=== PATIENT | female | born 1980 | race American Indian/Alaskan Native ===

== ENCOUNTER 2021-10-04 15:26 | Observation (INO) | payer MEDICARE ==
[2021-10-04 17:24] LABS: Bacteria,Urine 1+ /HPF (Negative); Bilirubin,Urine NEG (Negative); Blood,Urine NEG (Negative); Color,Urine Yellow (Yellow); Mucus,Urine FEW /HPF; Protein,Urine <15 mg/dL mg/dL (Negative); Urobilinogen,Urine < 2.0 mg/dL (<2.0)
[2021-10-04 17:49] LABS: Hematocrit 37.9 % (30.3-42.9); Hemoglobin 13.1 gm/dl (10.1-14.3); Mean Corpuscular HGB Conc 35 % (30-34); Mean Corpuscular Volume 97 fl (79-97); Platelet Count 173 K/mm3 (140-440); Red Blood Count 3.92 M/mm3 (3.65-5.03); Red Cell Distribution Width 13.6 % (13.2-15.2)
[2021-10-04 18:07] LABS: Alanine Aminotransferase 12 units/L (7-56); Uric Acid 5.3 mg/dL (3.5-7.6)
[2021-10-04] MEDS ORDERED: ALUM-MAG HYDROXIDE-SIMETHICONE 200-200-20MG/5ML ORAL LIQD 30 ML PO PRN (19:59)
[2021-10-04] MEDS ORDERED: DOCUSATE SODIUM 100 MG CAP PO PRN (19:59)
[2021-10-04] MEDS ORDERED: SIMETHICONE 80 MG CHEW TAB PO PRN (19:59)
--- NOTE | 2021-10-04 20:00 | History and Physical Report ---
History of Present Illness Date of examination: 10/04/21 Date of admission: 10/04/2021 Chief complaint: Elevated Blood Pressure History of present illness: 27 yo EDC 11/23 @ 32 6/7 weeks sent from high risk secondary to elevated BP. Pt for evaluation to rule out preeclampsia. Pt. with mild headache. No blurry vision, scotoma or epigastric pain. Good FM. No vaginal bleeding, contraction or leakage of fluid. Pt. was admitted 3 days ago to r/o preeclampsia. Received celestone then. H/o cerclage placement at 22 weeks as per patient Past History Past Medical History: hypertension Past Surgical History: cholecystectomy, other (Nose) Family/Genetic History: diabetes, hypertension (Lupus) Social history: no significant social history - Obstetrical History Expected Date of Delivery: 11/23/21 Actual Gestation: 32 Week(s) 6 Day(s) : 6 Para: 5 Hx # Term Pregnancies: 5 Number of Pregnancies: 0 Spontaneous Abortions: 0 Induced : 5 Medications and Allergies Allergies Allergy/AdvReac Type Severity Reaction Status Date / Time No Known Allergies Allergy Verified 11/16/14 12:38 Home Medications Medication Instructions Recorded Confirmed Last Taken Type Labetalol HCl 1 tab PO BID 11/15/14 11/16/14 11/16/14 09:00 History 1 Pnv with Ca,No.72/Iron/FA 1 tab PO DAILY 11/15/14 11/16/14 11/16/14 09:00 History [ Plus Tablet] Progesterone, Micronized 1 caplet VG DAILY 11/15/14 11/16/14 11/15/14 21:00 Hi story [Progesterone] 1 Active Meds: Active Medications Labetalol HCl (Labetalol 200 Mg Tab) 300 mg PO BID [facility] Stop: 10/10/21 23:59 Review of Systems All systems: negative - Vital Signs Vital signs: Vital Signs Temp Pulse Resp BP Pulse Ox 98.2 F 74 20 148/93 97 10/04/21 17:05 10/04/21 17:05 10/04/21 17:05 10/04/21 17:05 10/04/21 17:05 Temp Pulse Resp BP Pulse Ox 98.2 F 74 20 148/93 97 10/04/21 17:05 10/04/21 17:05 10/04/21 17:05 10/04/21 17:05 10/04/21 17:05 - Physical Exam Abdomen: Positive: normal appearance, soft Uterus: Positive: enlarged (32 weeks) Extremities: Positive: normal Deep Tendon Reflex Grade: Normal +2 - Obstetrical FHR: category 1 Results Result Diagrams: 10/04/21 Unknown 10/04/21 Unknown Abnormal lab results 10/04/21 10/04/21 Range/Units Unknown Unknown MCH 33 H (28-32) pg MCHC 35 H (30-34) % Creatinine 0.5 L (0.6-1.2) mg/dL All other labs normal. Assessment and Plan A IUP @ 32 6/7 weeks Chronic Hypertension r/o superimposed preeclampsia Incompetent Cervix. Grand multip P Admit for observation Normal PIH labs 24 hour urine protein Continue labetalol PIH labs in am H/o cerclage placement this . Continue progesterone per vagina
[2021-10-04] MEDS: ACETAMINOPHEN 325 MG TAB PO PRN (21:32)
[2021-10-05] MEDS: ACETAMINOPHEN 325 MG TAB PO PRN ×3 (03:07→21:25)
--- NOTE | 2021-10-05 09:39 | Ultrasound Report ---
ULTRASOUND OBSTETRIC LIMITED ULTRASOUND BIOPHYSICAL PROFILE INDICATION / CLINICAL INFORMATION: BRENDA, placenta condition; HTN w/pre-eclampia. COMPARISON: None available. FINDINGS: BREATHING MOVEMENT = 2 GROSS BODY MOVEMENT = 2 TONE = 2 QUALITATIVE AMNIOTIC FLUID VOLUME = 2 TOTAL BIOPHYSICAL SCORE = 8/8 AMNIOTIC FLUID INDEX (cm) = 15.8 PRESENTATION: Cephalic. HEART RATE (beats per minute): 144 ADDITIONAL FINDINGS: The placenta is located posteriorly and is grade 1/2 and is free of the os. IMPRESSION: 1. Biophysical Score = 8/8 2. No significant abnormality. Signer Name: Fernando Schwartz MD Signed: 10/05/2021 9:35 AM Workstation Name: [id number]
[2021-10-05] MEDS ORDERED: PRENATAL VIT27-FE FUMARATE-FOLIC ACID VIT TAB PO SCH (10:00)
--- NOTE | 2021-10-05 10:18 | Consultation ---
History of Present Illness - History of Present Illness 41-year-old female with past medical history of 32 weeks , chronic hypertension, GERD presenting to our facility for evaluation for preeclampsia. Patient on presentation states that her only complaints were headache, blurry vision, chest pain. Chest pain was described as 3 out of 10 pain, sharp, in the center of her chest, nonradiating. She denies any associated neck pain jaw pain shoulder pain, shortness of breath, nausea, vomiting. She has no prior history of cardiac issues. Remainder of ROS negative except for stated above Patient states that she takes labetalol 200 mg p.o. twice daily as an outpatient. She has had longstanding high blood pressure which is only gotten worse throughout her . [facility]. IMS consulted for blood pressure management and preeclampsia. PMHx: 32 weeks , hypertension, GERD PSHx: Cholecystectomy, cerclage, tonsillectomy, rhinoplasty FHx: Reviewed noncontributory. SHx: Tobacco use-denies ETOH Use-denies Recreational Drug Use-denies Past History Social history: no significant social history Medications and Allergies Allergies Allergy/AdvReac Type Severity Reaction Status Date / Time No Known Allergies Allergy Verified 11/16/14 12:38 Home Medications Medication Instructions Recorded Confirmed Last Taken Type Labetalol HCl 1 tab PO BID 11/15/14 10/05/21 10/04/21 08:30 History Pnv with Ca,No.72/Iron/FA 1 tab PO DAILY 11/15/14 10/05/21 10/04/21 11:00 History [ Plus Tablet] Progesterone, Micronized 1 caplet VG DAILY 11/15/14 10/05/21 10/03/21 22:00 History [Progesterone] Aspirin 80 mg PO DAILY 10/05/21 10/05/21 10/04/21 08:30 History Active Meds: Active Medications Acetaminophen (Acetaminophen 325 Mg Tab) 650 mg PO Q4H PRN PRN Reason: Pain MILD(1-3)/Fever >100.5/LEMUS Last Admin: 10/05/21 03:07 Dose: 650 mg Al Hydrox/Mg Hydrox/Simethicone (Alum-Mag Hydroxide-Simethicone [id number]/5ml Oral Liqd 30 Ml) 30 ml PO Q6H PRN PRN Reason: Indigestion Docusate Sodium (Docusate Sodium 100 Mg Cap) 100 mg PO Q12H PRN PRN Reason: Constipation Labetalol HCl (Labetalol 100 Mg Tab) 300 mg PO BID [facility] Stop: 10/10/21 23:59 Last Admin: 10/05/21 08:41 Dose: 300 mg Multivitamins/Iron/Calcium ( Ksc16-Sc Fumarate-Folic Acid Vit Tab) 1 each PO QDAY [facility] Last Admin: 10/05/21 09:44 Dose: 1 each Simethicone (Simethicone 80 Mg Chew Tab) 80 mg PO Q6H PRN PRN Reason: Gas pain Exam - Physical Exam Narrative exam: Physical Exam: VITAL SIGNS: Reviewed. GENERAL: The patient appears normally developed, Vital signs as documented. HEAD: No signs of head trauma. EYES: Pupils are equal. Extraocular motions intact. EARS: Hearing grossly intact. MOUTH: Oropharynx is normal. NECK: No adenopathy, no JVD. CHEST: Chest with clear breath sounds bilaterally. No wheezes, rales, or rhonchi. CARDIAC: Regular rate and rhythm. S1 and S2, without murmurs, gallops, or rubs. VASCULAR: No Edema. Peripheral pulses normal and equal in all extremities. ABDOMEN: Abdominal exam consistent with 26 weeks . Soft, non tender.. No rebound or guarding, and no masses palpated. Bowel Sounds normal. MUSCULOSKELETAL: Good range of motion of all major joints. Extremities without clubbing, cyanosis or edema. NEUROLOGIC EXAM: Alert and oriented x 4. no focal sensory or strength deficits. PSYCHIATRIC: Mood normal. SKIN: detail exam as documented in skin assessment - Constitutional Vitals: Temp Pulse Resp BP Pulse Ox 98.2 F 85 18 131/84 97 10/04/21 17:05 10/05/21 09:54 10/05/21 04:03 10/05/21 09:54 10/05/21 09:31 Results - Labs CBC & Chem 7: 10/05/21 09:59 10/05/21 09:59 Labs: Abnormal lab results 10/04/21 10/04/21 Range/Units Unknown Unknown MCH 33 H (28-32) pg MCHC 35 H (30-34) % Creatinine 0.5 L (0.6-1.2) mg/dL Assessment and Plan Assessment #Intrauterine 32 weeks #Chronic hypertension, with concern for preeclampsia #Chest pain #GERD #History of migraines #Advance care planning Disease education conducted, care plan discussed, diagnoses discussed, prognosis discussed, patient is full code, patient acknowledges understanding and agree with care plan, +30 minutes. Plan -GERIATRIC CASE MANAGER following for -Agree with 24-hour urine protein collection, will follow for results. -Recommend every 8 hour blood pressure checks -EKG reviewed, normal sinus rhythm on my interpretation, no ST changes, no T wave inversion. Some poor R wave progression noted however suspect that this is due to underlying chronic hypertension, and . -Doubt cardiac etiology of chest pain. Suspect this is all related to GERD symptomology/ -Agree with labetalol 300 mg p.o. twice daily -If patient blood pressure continues to be difficult to manage, would recommend addition of Procardia XL -Recommend restarting home protonix 40 mg po daily. -All medications ordered on chart reviewed and agree thus far. D/w Dr. Gilmore. IMS will continue to follow as long as patient is in hospital.
[2021-10-05 10:28] LABS: Hemoglobin 11.8 gm/dl (10.1-14.3); Mean Corpuscular HGB Conc 35 % (30-34); Mean Corpuscular Volume 96 fl (79-97); Platelet Count 186 K/mm3 (140-440); Red Blood Count 3.54 M/mm3 (3.65-5.03); Red Cell Distribution Width 13.1 % (13.2-15.2)
[2021-10-05 10:41] LABS: Uric Acid 5.7 mg/dL (3.5-7.6)
--- NOTE | 2021-10-05 11:41 | Progress Note ---
Assessment and Plan Chronic HTN at 33.0wks, ?superimposed preeclampsia, had episode of chest pain. Normal BPP /8; BRENDA 15.8 1. EKG still not done, pt asymptomatic now. Tech on the way says the nurse and when same reviewed, it was normal. 2. Appreciate hospitalist who states pt does not need ABG at this time. Also pt to get protonix daily with possible GERD history which he elicited. Will order same and nurse aware 3. Continue labetalol 300mg bid and add daily aspirin 4. APA to follow, sent from outpt clinic yesterday Plan of care discussed with pt; all questions encouraged and answered Subjective Date of service: 10/05/21 Principal diagnosis: HD#2 with chronic HTN, IUP at 32wks. R/O preeclampsia Interval history: nurse states pt had chest pain and EKG ordered and hospitalist consult ordered by Dr. Madden. Pt denies chest pain at this time. Pt admits to movement, denies LOF, VB or feeling ctx. Pt denies headache and has been getting her labetalol 300mg bid. Pt states she has not received her aspirin med. Objective - Constitutional Vitals: Vital Signs - 12hr 10/04/21 10/04/21 10/04/21 23:39 23:44 23:49 Pulse Rate 75 78 73 Respiratory Rate Blood Pressure O2 Sat by Pulse 98 98 97 Oximetry 10/04/21 10/04/21 10/05/21 23:50 23:55 00:00 Pulse Rate 37 L 80 84 Respiratory Rate Blood Pressure O2 Sat by Pulse 89 90 97 Oximetry 10/05/21 10/05/21 10/05/21 00:05 00:10 00:15 Pulse Rate 74 74 71 Respiratory Rate Blood Pressure O2 Sat by Pulse 98 97 98 Oximetry 10/05/21 10/05/21 10/05/21 00:20 00:25 00:29 Pulse Rate 72 72 72 Respiratory Rate Blood Pressure 116/61 O2 Sat by Pulse 98 98 Oximetry 10/05/21 10/05/21 10/05/21 00:30 00:35 00:40 Pulse Rate 73 72 74 Respiratory Rate Blood Pressure O2 Sat by Pulse 98 98 97 Oximetry 10/05/21 10/05/21 10/05/21 00:45 00:50 00:55 Pulse Rate 76 75 75 Respiratory Rate Blood Pressure O2 Sat by Pulse 98 98 97 Oximetry 10/05/21 10/05/21 10/05/21 01:00 01:04 01:05 Pulse Rate 70 74 69 Respiratory Rate Blood Pressure O2 Sat by Pulse 97 93 97 Oximetry 10/05/21 10/05/21 10/05/21 01:09 01:10 01:15 Pulse Rate 69 71 81 Respiratory Rate Blood Pressure O2 Sat by Pulse 92 98 94 Oximetry 10/05/21 10/05/21 10/05/21 01:20 01:25 01:29 Pulse Rate 75 77 80 Respiratory Rate Blood Pressure 138/84 O2 Sat by Pulse 97 93 Oximetry 10/05/21 10/05/21 10/05/21 01:30 01:35 01:40 Pulse Rate 69 74 77 Respiratory Rate Blood Pressure O2 Sat by Pulse 99 99 99 Oximetry 10/05/21 10/05/21 10/05/21 01:45 01:50 01:55 Pulse Rate 77 75 78 Respiratory Rate Blood Pressure O2 Sat by Pulse 98 98 98 Oximetry 10/05/21 10/05/21 10/05/21 02:00 02:05 02:10 Pulse Rate 74 76 83 Respiratory Rate Blood Pressure O2 Sat by Pulse 99 99 98 Oximetry 10/05/21 10/05/21 10/05/21 02:15 02:20 02:25 Pulse Rate 83 83 83 Respiratory Rate Blood Pressure O2 Sat by Pulse 97 98 97 Oximetry 10/05/21 10/05/21 10/05/21 02:31 02:32 02:37 Pulse Rate 88 90 77 Respiratory Rate Blood Pressure O2 Sat by Pulse 86 97 98 Oximetry 10/05/21 10/05/21 10/05/21 02:42 02:47 02:48 Pulse Rate 72 72 74 Respiratory Rate Blood Pressure O2 Sat by Pulse 98 100 91 Oximetry 10/05/21 10/05/21 10/05/21 02:52 02:57 03:02 Pulse Rate 74 80 75 Respiratory Rate Blood Pressure O2 Sat by Pulse 99 99 99 Oximetry 10/05/21 10/05/21 10/05/21 03:07 03:12 03:13 Pulse Rate 80 76 92 H Respiratory 18 Rate Blood Pressure O2 Sat by Pulse 99 80 L 98 Oximetry 10/05/21 10/05/21 10/05/21 03:18 03:23 03:28 Pulse Rate 78 78 72 Respiratory Rate Blood Pressure O2 Sat by Pulse 98 98 98 Oximetry 10/05/21 10/05/21 10/05/21 03:29 03:33 03:38 Pulse Rate 72 78 77 Respiratory Rate Blood Pressure 130/76 O2 Sat by Pulse 100 100 Oximetry 10/05/21 10/05/21 10/05/21 03:43 03:48 03:53 Pulse Rate 83 79 80 Respiratory Rate Blood Pressure O2 Sat by Pulse 100 100 100 Oximetry 10/05/21 10/05/21 10/05/21 03:58 04:03 04:08 Pulse Rate 70 77 76 Respiratory 18 Rate Blood Pressure O2 Sat by Pulse 100 100 100 Oximetry 10/05/21 10/05/21 10/05/21 04:13 04:18 04:23 Pulse Rate 81 77 85 Respiratory Rate Blood Pressure O2 Sat by Pulse 100 98 98 Oximetry 10/05/21 10/05/21 10/05/21 04:24 04:28 04:29 Pulse Rate 83 80 82 Respiratory Rate Blood Pressure 145/95 O2 Sat by Pulse 93 98 Oximetry 10/05/21 10/05/21 10/05/21 04:31 04:33 04:38 Pulse Rate 80 81 91 H Respiratory Rate Blood Pressure O2 Sat by Pulse 94 95 93 Oximetry 10/05/21 10/05/21 10/05/21 04:43 04:47 04:48 Pulse Rate 79 83 79 Respiratory Rate Blood Pressure O2 Sat by Pulse 96 92 95 Oximetry 10/05/21 10/05/21 10/05/21 04:53 04:58 05:03 Pulse Rate 83 86 76 Respiratory Rate Blood Pressure O2 Sat by Pulse 94 91 96 Oximetry 10/05/21 10/05/21 10/05/21 05:06 05:08 05:13 Pulse Rate 86 78 80 Respiratory Rate Blood Pressure O2 Sat by Pulse 92 96 95 Oximetry 10/05/21 10/05/21 10/05/21 05:14 05:18 05:23 Pulse Rate 76 84 82 Respiratory Rate Blood Pressure O2 Sat by Pulse 93 96 97 Oximetry 10/05/21 10/05/21 10/05/21 05:24 05:28 05:29 Pulse Rate 87 85 81 Respiratory Rate Blood Pressure 155/88 O2 Sat by Pulse 93 95 Oximetry 10/05/21 10/05/21 10/05/21 05:30 05:33 05:38 Pulse Rate 88 67 85 Respiratory Rate Blood Pressure O2 Sat by Pulse 91 88 97 Oximetry 10/05/21 10/05/21 10/05/21 05:40 05:43 05:47 Pulse Rate 75 79 76 Respiratory Rate Blood Pressure O2 Sat by Pulse 94 96 93 Oximetry 10/05/21 10/05/21 10/05/21 05:48 05:53 05:54 Pulse Rate 78 74 75 Respiratory Rate Blood Pressure O2 Sat by Pulse 95 96 82 L Oximetry 10/05/21 10/05/21 10/05/21 05:58 06:00 06:03 Pulse Rate 74 75 77 Respiratory Rate Blood Pressure O2 Sat by Pulse 97 88 96 Oximetry 10/05/21 10/05/21 10/05/21 06:06 06:08 06:11 Pulse Rate 79 73 73 Respiratory Rate Blood Pressure O2 Sat by Pulse 90 95 86 Oximetry 10/05/21 10/05/21 10/05/21 06:13 06:17 06:18 Pulse Rate 68 68 76 Respiratory Rate Blood Pressure O2 Sat by Pulse 97 89 90 Oximetry 10/05/21 10/05/21 10/05/21 06:23 06:28 06:29 Pulse Rate 69 76 78 Respiratory Rate Blood Pressure 132/77 O2 Sat by Pulse 94 81 L Oximetry 10/05/21 10/05/21 10/05/21 06:33 06:38 06:43 Pulse Rate 77 71 79 Respiratory Rate Blood Pressure O2 Sat by Pulse 99 99 99 Oximetry 10/05/21 10/05/21 10/05/21 06:46 06:48 06:53 Pulse Rate 79 75 75 Respiratory Rate Blood Pressure O2 Sat by Pulse 92 95 92 Oximetry 10/05/21 10/05/21 10/05/21 06:58 06:59 07:03 Pulse Rate 84 79 78 Respiratory Rate Blood Pressure O2 Sat by Pulse 99 94 99 Oximetry 10/05/21 10/05/21 10/05/21 07:07 07:08 07:13 Pulse Rate 75 78 75 Respiratory Rate Blood Pressure O2 Sat by Pulse 78 L 97 96 Oximetry 10/05/21 10/05/21 10/05/21 07:16 07:18 07:23 Pulse Rate 86 79 83 Respiratory Rate Blood Pressure O2 Sat by Pulse 82 L 100 97 Oximetry 10/05/21 10/05/21 10/05/21 07:24 07:28 07:29 Pulse Rate 84 86 75 Respiratory Rate Blood Pressure 138/78 O2 Sat by Pulse 89 99 Oximetry 10/05/21 10/05/21 10/05/21 07:30 07:33 07:37 Pulse Rate 88 81 84 Respiratory Rate Blood Pressure O2 Sat by Pulse 94 95 94 Oximetry 10/05/21 10/05/21 10/05/21 07:38 07:42 07:43 Pulse Rate 82 80 80 Respiratory Rate Blood Pressure O2 Sat by Pulse 94 94 97 Oximetry 10/05/21 10/05/21 10/05/21 07:48 07:53 07:58 Pulse Rate 80 82 79 Respiratory Rate Blood Pressure O2 Sat by Pulse 94 94 98 Oximetry 10/05/21 10/05/21 10/05/21 08:00 08:03 08:08 Pulse Rate 84 86 84 Respiratory Rate Blood Pressure O2 Sat by Pulse 85 99 99 Oximetry 10/05/21 10/05/21 10/05/21 08:13 08:18 08:25 Pulse Rate 79 80 76 Respiratory Rate Blood Pressure 133/70 O2 Sat by Pulse 96 96 Oximetry 10/05/21 10/05/21 10/05/21 08:41 08:45 09:06 Pulse Rate 76 86 79 Respiratory Rate Blood Pressure 133/70 O2 Sat by Pulse 97 97 Oximetry 10/05/21 10/05/21 10/05/21 09:11 09:16 09:21 Pulse Rate 81 82 83 Respiratory Rate Blood Pressure O2 Sat by Pulse 98 98 94 Oximetry 10/05/21 10/05/21 10/05/21 09:26 09:27 09:31 Pulse Rate 92 H 89 98 H Respiratory Rate Blood Pressure O2 Sat by Pulse 97 93 97 Oximetry 10/05/21 09:54 Pulse Rate 85 Respiratory Rate Blood Pressure 131/84 O2 Sat by Pulse Oximetry General appearance: Present: no acute distress - Neck Neck: normal ROM - Respiratory Respiratory effort: normal - Breasts Breasts: deferred - Cardiovascular Rhythm: regular Extremities: No edema - Gastrointestinal General gastrointestinal: Present: soft, non-tender - Genitourinary Female genitourinary: other (FHR category I and no ctx; Uterus non-tender, gravid) - Neurologic Neurologic: moves all extremities - Psychiatric Psychiatric: cooperative - Labs CBC & Chem 7: 10/05/21 09:59 10/05/21 09:59 Labs: Abnormal lab results 10/04/21 10/04/21 10/05/21 Range/Units Unknown Unknown 09:59 RBC 3.54 L (3.65-5.03) M/mm3 MCH 33 H 33 H (28-32) pg MCHC 35 H 35 H (30-34) % RDW 13.1 L (13.2-15.2) % Creatinine 0.5 L (0.6-1.2) mg/dL 10/05/21 Range/Units 09:59 RBC (3.65-5.03) M/mm3 MCH (28-32) pg MCHC (30-34) % RDW (13.2-15.2) % Creatinine 0.5 L (0.6-1.2) mg/dL Medications & Allergies - Medications Allergies/Adverse Reactions: Allergies No Known Allergies Allergy (Verified 11/16/14 12:38) Home Medications: Home Medications Medication Instructions Recorded Confirmed Last Taken Type Labetalol HCl 1 tab PO BID 11/15/14 10/05/21 10/04/21 08:30 History Pnv with Ca,No.72/Iron/FA 1 tab PO DAILY 11/15/14 10/05/21 10/04/21 11:00 History [ Plus Tablet] Progesterone, Micronized 1 caplet VG DAILY 11/15/14 10/05/21 10/03/21 22:00 History [Progesterone] Aspirin 80 mg PO DAILY 10/05/21 10/05/21 10/04/21 08:30 History Active Medications: Generic Name Dose Route Start Last Admin Trade Name Freq PRN Reason Stop Dose Admin Acetaminophen 650 mg 10/04/21 19:59 10/05/21 03:07 Acetaminophen 325 Mg Tab PO 650 mg Q4H PRN Administration Pain MILD(1-3)/Fever >100.5/LEMUS Al Hydrox/Mg Hydrox/Simethicone 30 ml 10/04/21 19:59 Alum-Mag Hydroxide-Simethicone [id number]/5ml Oral Liqd 30 Ml PO Q6H PRN Indigestion Docusate Sodium 100 mg 10/04/21 19:59 Docusate Sodium 100 Mg Cap PO Q12H PRN Constipation Labetalol HCl 300 mg 10/04/21 22:00 10/05/21 08:41 Labetalol 100 Mg Tab PO 10/10/21 23:59 300 mg BID [facility] Administration Multivitamins/Iron/Calcium 1 each 10/05/21 10:00 10/05/21 09:44 Dpo18-Vg Fumarate-Folic Acid Vit Tab PO 1 each QDAY [facility] Administration Simethicone 80 mg 10/04/21 19:59 Simethicone 80 Mg Chew Tab PO Q6H PRN Gas pain
[2021-10-05] MEDS ORDERED: PANTOPRAZOLE 40 MG TAB PO SCH (13:00)
[2021-10-05] MEDS ORDERED: ASPIRIN 81 MG TAB CHEW PO SCH (13:00)
--- NOTE | 2021-10-05 19:30 | Event Note ---
Date: 10/05/[address] Jerome that pt was here and he states he will see her tomorrow. He already left the hospital and pt relatively stable.
[2021-10-05 21:38] LABS: Creatinine,Urine 69.3 mg/dL (0.1-20.0)
[2021-10-05 21:44] LABS: Creatinine 24 Hour,Urine 1.7 (0.8-2.8)
[2021-10-05 21:59] VITALS: BP 144/91
[2021-10-05 22:30] LABS: Bacteria,Urine 2+ /HPF (Negative); Bilirubin,Urine NEG (Negative); Blood,Urine SM (Negative); Color,Urine Straw (Yellow); Protein,Urine <15 mg/dL mg/dL (Negative); Urobilinogen,Urine < 2.0 mg/dL (<2.0)
--- NOTE | 2021-10-05 23:08 | Event Note ---
Date: 10/05/21 CC: cHTN, R/O superimposed pre-eclampsia HPI: 41 y/o at 33 weeks has known cHTN. Since BP's >160/110 at the [facility]'s office, she is here to R/O superimposed pre-eclampsia. BP's are <140/90 on labetalol 300 mg BID. 24 hour urine protein resulted as 11 mg this evening. GERD is improfed with PPI now. O: NST= reactive TOCO= none SVE= cerclage in place IMP: 1.) 33 weeks 2.) cHTN, ruled-out superimposed pre-eclampsia 3.) AMA 4.) Cervical insufficiency, cerclage in place 5.) GERD PLAN: 1.) The patient already received BMTZ x2 at [facility] last week. 2.) BP's are <140/90 on labetalol 300 mg BID. 24 hour urine protein resulted as 11 mg this evening. 3.) Hence, superimposed pre-eclampsia is ruled-out. 4.) Discharge home tonight. 5.) F/U with Dr. Martinez tomorrow morning. 6.) Continue Progesterone PV. 7.) Continue PPI for GERD.
--- NOTE | 2021-10-07 20:01 | Electrocardiograph Report ---
[facility] Test Date: 2021-10-05 Test Time: 11:46:14 Pat Name: MARKUS KEVIN Department: Room: 2005 06 Gender: F Auto Striper: ERIC : 1980 Requested By: PIOTR HURST Order Number: [id number] Reading MD: Arturo Alfonso Measurements Intervals [place] Rate: 73 P: 37 VT: 137 QRS: 22 QRSD: 73 T: 36 QT: 369 QTc: 407 Interpretive Statements Sinus rhythm No previous ECG available for comparison Electronically Signed On 10-07-2021 20:01:13 EDT by Arturo Alfonso
== END 2021-10-05 22:50 | disposition home or self-care (01) ==
LOC: TRG 15:26 → APU 15:28 → TRG 19:59 → LD 21:14
PROVIDERS: ADMIT Obstetrics & Gynecology; ATTEND Obstetrics & Gynecology
DX: O26.893 Other specified pregnancy related conditions, third trimester (principal); R03.0 Elevated blood-pressure reading, without diagnosis of hypertension; A00.0 Cholera due to Vibrio cholerae 01, biovar cholerae; K21.9 Gastro-esophageal reflux disease without esophagitis; G43.909 Migraine, unspecified, not intractable, without status migrainosus; R07.89 Other chest pain; O10.913 Unspecified pre-existing hypertension complicating pregnancy, third trimester; O34.33 Maternal care for cervical incompetence, third trimester; O09.523 Supervision of elderly multigravida, third trimester; Z3A.32 32 weeks gestation of pregnancy; Z90.49 Acquired absence of other specified parts of digestive tract; Z79.82 Long term (current) use of aspirin; Z79.899 Other long term (current) drug therapy; Z98.890 Other specified postprocedural states
CPT/HCPCS: 36415; 59025; 76815; 76819; 81001; 82565; 82570; 83615; 84156; 84450; 84460; 84550; 85027; 86850; 86900; 86901; 93005; G0378